=== PATIENT | female | born 1965 | race Caucasian/White ===

== ENCOUNTER 2023-06-22 12:33 | Outpatient (AMB) | payer MEDICARE, MEDICAID, SELFPAY ==
--- NOTE | 2023-06-22 12:54 | A.SPINEOV_ITS ---
Intake Intake Visit Reasons: spinal stenosis Intake Note: Ms. Gutierrez is here today c/o Left sided Neck pain with radiating symptoms down both arms. Certified Activities Director Required: No Allergies sulfite Allergy (Uncoded 06/22/23 12:56) sensitivity Assessment & Plan Assessment & Plan (1) Bilateral cervical radiculopathy: Code(s): M54.12 - Radiculopathy, cervical region Plan: Dear colleague Thank you for referring Diamond Gutierrez to the office today with a chief complaint of bilateral arm pain, right more than left. HPI: This 57-year-old female developed pain radiating from her neck down into her right arm approximately 1 year ago. It started with headaches and then progressed to pain in the right side of her neck to the elbow and into her hand. Initially the pain was tolerable but over time it became unbearable. Currently, the pain is constant and interferes with her daily activities. She can not sleep. She sleeps in a half sitting position with multiple pillows. Activity increases the pain. Supporting her right arm decreases the pain mildly. The same pain in the same distribution is occurring on the left side but much milder. Multiple friends that a physical therapist performed therapy on her without success. Recently, they declined performing physical therapy due to the amount of pain the patient is in. She is doing physician guided home exercise plan without success. She has taking a lot of anti-inflammatory drugs and Tylenol without success. PMH: Hypertension, hypercholesterolemia, ulcerative colitis. She had a recent checkup by her primary care physician without major findings. Medications: Paxil, hydrochlorothiazide, atorvastatin, omeprazole Allergies: Sulfa sensitivity Social history: . Two daughters. Nonsmoker Physical Exam: Pleasant female in obvious agony. She holds her right arm in a flexed position. Examined of the right shoulder is noneventful. Spurling test is positive with radiation down her right arm. There is a trace of triceps weakness on the right side. This diffuse numbness of her fingers on the right side. No pathological reflexes Radiological Studies: MRI done at [place] on 05/16/2023 shows an anterolisthesis grade 1 C6-7 and broad-based disc osteophyte complex with superimposed central protrusion causing severe central stenosis and moderate to severe bilateral foraminal stenosis . A dynamic cervical x-ray shows a stable anterolisthesis C5-6 and C6-7. Impression/Plan: This patient is suffering from a bilateral C7 radiculopathy due to a broad based disc osteophyte complex compressing the bilateral C7 nerve roots. She is very uncomfortable and therefore I added her for an anterior diskectomy and fusion C6-7 on 07/02/2023. Thank you for allowing me to participate in your patients care. total time spent was 50 minutes in counseling ,coordination of plan, personal review of imaging, surgical decision making and subsequent plan Juan Humphrey MD, PhD Spine Fellowship Trained Neurosurgeon Director, [facility] (2) Anterolisthesis of cervical spine: Code(s): M43.12 - Spondylolisthesis, cervical region Plan: e Orders: Orders XR cervical spine 4V Today M43.12 - Spondylolisthesis, cervical region, M54.12 - Radiculopathy, cervical region Coding Level of Care Code New Pt Level 4 (77049) Diagnoses Bilateral cervical radiculopathy M54.12 Anterolisthesis of cervical spine M43.12
== END 2023-06-22 14:18 | disposition home or self-care (01) ==
PROVIDERS: PCP Internal Medicine; Visit Provider Neurological Surgery
DX: M54.12 Radiculopathy, cervical region (principal); M43.12 Spondylolisthesis, cervical region
CPT/HCPCS: 99204

== ENCOUNTER 2023-06-22 12:33 | Outpatient (REF) | payer MEDICARE, MEDICAID, SELFPAY ==
--- NOTE | ~2023-06-22 | XR_ITS ---
EXAMINATION: XR CERVICAL SPINE CLINICAL INFORMATION: Spondylolisthesis COMPARISON: None available. TECHNIQUE: 4 views of the cervical spine were obtained. Flexion-extension views were obtained. FINDINGS: Vertebrae from C1 to C6 visualized. There is approximately 2 mm of anterolisthesis of C5 on C6 without evidence of dynamic instability. No acute fracture. Paravertebral soft tissue structures are within normal limits. XR/XR cervical spine 4V IMPRESSION: C5 on C6 anterolisthesis 2 mm without dynamic instability.
== END 2023-06-22 12:34 | disposition home or self-care (01) ==
LOC: HO.HOSX 12:33
PROVIDERS: PCP Internal Medicine; Visit Provider Neurological Surgery
DX: M43.12 Spondylolisthesis, cervical region (principal); M54.12 Radiculopathy, cervical region
CPT/HCPCS: 72050; 99202

== ENCOUNTER → 2023-06-29 13:13 | Outpatient (BNV) | payer MEDICARE, MEDICAID, SELFPAY | PROVIDERS: PCP Internal Medicine; Visit Provider Internal Medicine Cardiovascular Disease | DX: R94.31 Abnormal electrocardiogram [ECG] [EKG] (principal) | CPT/HCPCS: 93010 ==

== ENCOUNTER 2023-06-30 09:48 | Day surgery (SDC) | payer MEDICARE, MEDICAID, SELFPAY ==
--- NOTE | 2023-06-29 | ECG_ITS ---
Test Reason : preop Blood Pressure : / mmHG Vent. Rate : 070 BPM Atrial Rate : 070 BPM P-R Int : 162 ms QRS Dur : 084 ms QT Int : 420 ms P-R-T Axes : 028 -14 -15 degrees QTc Int : 453 ms Normal sinus rhythm Minimal voltage criteria for LVH, may be normal variant ( R in aVL ) Inferior infarct , age undetermined Abnormal ECG No previous ECGs available Referred By: Ami Sampson Electronically Signed By:Faustino Ureña
[2023-06-29 12:17] VITALS: BP 158/87; PULSE 65; RESP 16; O2SAT 99; BMI 36.6
--- NOTE | 2023-06-29 12:51 | P.CONAN_ITS ---
Documented by User: Ami Sampson NP 06/29/23 14:42 HPI - Anesthesia Eval Consult details Narrative: 57yo F for C 6-7 Ant Cerv Discectomy and fusion No recent illness. Mild seasonal allergies No CP/SOB with minimal activity r/t pain. Able to do ADL's GERD. ppi controls Asthma. Very stable. No rescue inhaler. Only flares with URI. Hx of uvulitis post general anesthesia 2015 [facility] Active Problems Active Problems: All Active Problems (Updated 06/29/23 @ 12:41 by Jordyn Tran RN) Bilateral cervical radiculopathy (Acute) Anterolisthesis of cervical spine (Acute) Past Medical History Medical History Asthma Depression Anxiety GERD (gastroesophageal reflux disease) Seasonal allergies Ulcerative colitis Elevated cholesterol HTN (hypertension) Cervical radiculopathy Family History Family history of problems with anesthesia: No Surgical History Surgical History History of dental surgery Hx of foot surgery History of surgery on left wrist Hx of left knee surgery Hx of right knee surgery Hx of colonoscopy History of bilateral carpal tunnel release History of bilateral knee replacement History of Problems with Anesthesia: No Social History Social History Household Members: Spouse Are you a primary personal care assistant to a significant other at home: No Do you presently have visiting nurse or other home services: No Patient Tobacco Use Status: Never used Tobacco Use of substances other than those prescribed or required for medical reasons: No Have you been hit, kicked, punched, or otherwise hurt by someone within the past year? If so, by whom?: No Are you DNR?: No Advance Directives: No Advance Directives Information Provided: Yes Advance Directives on File: No Recently lost weight without trying: No Nutrition Risks: No Nutritional Risk Meds Allergies Allergy/AdvReac Type Severity Reaction Status Date / Time sulfite Allergy Intermediate sensitivity-food Verified 06/29/23 11:58 sensitivity Home Medications Medication Instructions Recorded Confirmed Last Taken Type atorvastatin 40 mg tablet 40 mg PO DAILY 06/28/23 06/28/23 Unknown History hydrochlorothiazide 12.5 mg capsule 12.5 mg PO DAILY 06/28/23 06/28/23 Unknown History omeprazole 20 mg capsule,delayed 20 mg PO DAILY 06/28/23 06/28/23 Unknown History release paroxetine HCl 20 mg tablet 40 mg PO DAILY 06/28/23 06/28/23 Unknown History acetaminophen 500 mg tablet 1,000 mg PO QID PRN Pain 06/29/23 06/29/23 Unknown History aspirin 81 mg tablet,delayed 81 mg PO DAILY 06/29/23 06/29/23 Unknown History release cholecalciferol (vitamin D3) 25 25 mcg PO DAILY 06/29/23 06/29/23 Unknown Hist ory mcg (1,000 unit) tablet (Vitamin D3) levocetirizine 5 mg tablet (Xyzal) 5 mg PO DAILY PRN Allergy Symptoms 06/29/23 06/29/23 Unknown History melatonin 10 mg tablet 10 mg PO BEDTIME PRN Insomnia 06/29/23 06/29/23 Unknown History multivitamin 1 tab PO DAILY 06/29/23 06/29/23 Unknown History potassium chloride 06/29/23 06/29/23 Unknown History Exam Height,Weight and Vital Signs: Height 5 ft 4 in Weight 96.6 kg Last Vital Signs Pulse 65 06/29/23 12:17 Resp 16 06/29/23 12:17 BP 158/87 H 06/29/23 12:17 Pulse Ox 99 06/29/23 12:17 O2 Del Method Room Air 06/29/23 12:17 Pertinent Lab Results Pertinent Lab Results: Lab Results 06/29/23 Range/Units 13:23 WBC 8.4 (4.8-10.8) X10*3/uL RBC 4.57 (4.20-5.50) X10*6/uL Hgb 13.5 (12.0-16.0) g/dl Hct 38.9 (37.0-47.0) % MCV 85.1 (80.0-98.0) fL MCH 29.5 (27.0-33.0) pg MCHC 34.7 (31.0-35.0) g/dl RDW 12.0 (11.0-16.0) % Plt Count 296 (160-400) X10*3/uL MPV 10.5 (9.4-12.3) fL Absolute Nucleated RBC 0.000 (0.0-0.012) X10*3/uL Nucleated RBC % (auto) 0.0 (0.0-0.2) /100WBC Sodium 141 (135-145) mmol/L Potassium 3.5 (3.3-5.1) mmol/L Chloride 100 (96-108) mmol/L Carbon Dioxide 31 H (22-29) mmol/L Anion Gap 14 (12-20) BUN 9 (9-16) mg/dL Creatinine 0.85 (0.5-1.4) mg/dL Estim Creat Clear Calc 83.3 Estimated GFR > 60 Random Glucose 93 (60-115) mg/dL Calcium 10.0 (8.4-10.2) mg/dL Airway Mallampati Class: III TM Dist: >3cm Neck ROM: Limited Loose/Missing/Broken Teeth: Yes (#7&10 implants with crowns) Heart: RRR Lungs: CTAB Assessment and Plan Assessment Anesthesia Assessment: Anesthesia Plan Discussed and PAT Visit Final Anesthetic Review Family History of Problems with Anesthesia: No History of Problems with Anesthesia: No Documented by User: Rudi Ayala MD 06/30/23 10:45 [facility] Past Medical History Medical History Asthma Depression Anxiety GERD (gastroesophageal reflux disease) Seasonal allergies Ulcerative colitis Elevated cholesterol HTN (hypertension) Cervical radiculopathy Surgical History Surgical History History of dental surgery Hx of foot surgery History of surgery on left wrist Hx of left knee surgery Hx of right knee surgery Hx of colonoscopy History of bilateral carpal tunnel release History of bilateral knee replacement Social History Social History Household Members: Spouse Are you a primary personal care assistant to a significant other at home: No Do you presently have visiting nurse or other home services: No Patient Tobacco Use Status: Never used Tobacco Use of substances other than those prescribed or required for medical reasons: No Have you been hit, kicked, punched, or otherwise hurt by someone within the past year? If so, by whom?: No Are you DNR?: No Advance Directives: No Advance Directives Information Provided: Yes Advance Directives on File: No Recently lost weight without trying: No Nutrition Risks: No Nutritional Risk Meds Allergies Allergy/AdvReac Type Severity Reaction Status Date / Time sulfite Allergy Intermediate sensitivity-food Verified 06/29/23 11:58 sensitivity Home Medications Medication Instructions Recorded Confirmed Last Taken Type atorvastatin 40 mg tablet 40 mg PO DAILY 06/28/23 06/28/23 Unknown History hydrochlorothiazide 12.5 mg capsule 12.5 mg PO DAILY 06/28/23 06/28/23 Unknown History omeprazole 20 mg capsule,delayed 20 mg PO DAILY 06/28/23 06/28/23 Unknown History release paroxetine HCl 20 mg tablet 40 mg PO DAILY 06/28/23 06/28/23 Unknown History acetaminophen 500 mg tablet 1,000 mg PO QID PRN Pain 06/29/23 06/29/23 Unknown History aspirin 81 mg tablet,delayed 81 mg PO DAILY 06/29/23 06/29/23 Unknown History release cholecalciferol (vitamin D3) 25 25 mcg PO DAILY 06/29/23 06/29/23 Unknown History mcg (1,000 unit) tablet (Vitamin D3) levocetirizine 5 mg tablet (Xyzal) 5 mg PO DAILY PRN Allergy Symptoms 06/29/23 06/29/23 Unknown History melatonin 10 mg tablet 10 mg PO BEDTIME PRN Insomnia 06/29/23 06/29/23 Unknown History multivitamin 1 tab PO DAILY 06/29/23 06/29/23 Unknown History potassium chloride 06/29/23 06/29/23 Unknown History Assessment and Plan Final Anesthetic Review NPO: Yes ASA Class: III Final Preanesthetic Review: No Changes in Pt Med Stat, Meds/Allgs Chart Reviewed, Consent Obtained/Reviewed and Anes Risks/Benef Reviewed Patient Risk: Intermediate Procedure Risk: Intermediate Assessment/Block/Sedation in SS: Assess/Block/Sedation-SS Anesthetic Plan Anesthetic Plan: GA Disposition: Standard PACU
[2023-06-29 14:21] LABS: Hematocrit 38.9 % (37.0-47.0); Hemoglobin 13.5 g/dl (12.0-16.0); Mean Corpuscular HGB Conc 34.7 g/dl (31.0-35.0); Mean Corpuscular Hemoglobin 29.5 pg (27.0-33.0); Mean Corpuscular Volume 85.1 fL (80.0-98.0); Mean Platelet Volume 10.5 fL (9.4-12.3); Platelet Count 296 X10*3/uL (160-400); Red Blood Count 4.57 X10*6/uL (4.20-5.50); White Blood Count 8.4 X10*3/uL (4.8-10.8)
[2023-06-29 14:38] LABS: Anion Gap 14 (12-20); Blood Urea Nitrogen 9 mg/dL (9-16); Carbon Dioxide 31 mmol/L (22-29); Chloride 100 mmol/L (96-108); Creatinine Clr Calc Pharmacy 83.3; Estimated Glomerular Filt Rate > 60; Glucose Random 93 mg/dL (60-115); Potassium 3.5 mmol/L (3.3-5.1); Sodium 141 mmol/L (135-145)
[2023-06-30] VITALS (9 sets, daily range): BP systolic 132–183; BP diastolic 60–93; PULSE 72–88; RESP 12–18; TEMP 35.9–36.1; O2SAT 95–100; BMI 36.9
--- NOTE | ~2023-06-30 | FL_ITS ---
EXAMINATION: XR FLUOROSCOPY WITH IMAGES CLINICAL INFORMATION: C6-C7 anterior discectomy with fusion. COMPARISON: Cervical spine radiographs dated 06/22/2023. TECHNIQUE: Fluoroscopy Supervised By: Dr. Kevin Humphrey. Fluoroscopy Time: 0.1 minutes. Cumulative Dose: 2.84 mGy. DAP: 0.584 Gycm2. Images: 0.1. FINDINGS: The submitted images show application of an anterior Low Profile fixator device to the C6-C7 level. FL/FL guidance in OR IMPRESSION: Intraoperative fluoroscopic guidance is provided during C6-C7 anterior discectomy and fusion. Please see the patient's Operative Report for full procedural details.
--- NOTE | 2023-06-30 07:07 | P.HPSUR_ITS ---
Pre-Procedural Eval Section A - 24 Hr Update-Section A only Date of Service: 06/30/23 The patient is an INPATIENT: No Changes since office visit: No Cold of Flu in the past 2 weeks, No New Medical Problems, No Changes in Medication and No Patient answered all questions The patient has been examined within 24 hours of the surgical procedure. The History & Physical has been completed within 30 days and I have reviewed it.: No Section B - Complete if H&P > 30 days Chief Complaint: Radiculopathy, cervical region Allergies: Allergies Allergy/AdvReac Type Severity Reaction Status Date / Time sulfite Allergy Intermediate sensitivity-food Verified 06/29/23 11:58 sensitivity Review of Systems Sugical H&P ROS: Negative: Constitution, Cardiovascular, Respiratory, Neurological, Psychiatric, Hem-Onc, Allergic/Immunologic, Gastrointestinal, Genitourinary, Musculoskeletal, Integumentary, Endocrine and Eye s/Ears/Nose/Throat Exam Surgical H&P Exam: Not Evaluated: HEENT, Not Evaluated: Heart, Not Evaluated: Lungs, Not Evaluated: Extremities, Not Evaluated: Abdomen, Not Evaluated: Skin and Not Evaluated: Neurological Plan Diagnosis/Plan: Unchanged C6-7 ACDf Time Spent With Patient Time: Total time managing care of this patient today __6__ minutes.
--- NOTE | 2023-06-30 09:24 | PM.DS ---
DS: Providers Provider Date of Service: 06/30/23 Date of discharge: 06/30/23 Primary care physician: Armando Trimble MD Admitting clinician: Juan Humphrey DS: Diagnosis Discharge Diagnosis (1) Bilateral cervical radiculopathy: Status: Acute DS: Summary Time Attestation Discharge Coordination Time (in mins): 5 Quality: Safe Use of Opioids Does Pt have an Active Cancer Diagnosis on the Problem List?: No Quality: Stroke Does the patient have a stroke diagnosis?: No Physical Exam Vital Signs: Vital Signs: Last Vital Signs Pulse 65 06/29/23 12:17 Resp 16 06/29/23 12:17 BP 158/87 H 06/29/23 12:17 Pulse Ox 99 06/29/23 12:17 O2 Del Method Room Air 06/29/23 12:17 BMI result Body Mass Index 36.6 DS: Data Data Completed and Pending Labs on day of discharge: Laboratory Results - last 24 hr 06/29/23 13:23 WBC 8.4 RBC 4.57 Hgb 13.5 Hct 38.9 MCV 85.1 MCH 29.5 MCHC 34.7 RDW 12.0 Plt Count 296 MPV 10.5 Absolute Nucleated RBC 0.000 Nucleated RBC % (auto) 0.0 Sodium 141 Potassium 3.5 Chloride 100 Carbon Dioxide 31 H Anion Gap 14 BUN 9 Creatinine 0.85 Estim Creat Clear Calc 83.3 Estimated GFR > 60 Random Glucose 93 Calcium 10.0 Discharge Plan Discharge Patient Disposition: Home, Self-Care Referrals: Armando Trimble MD [Primary Care Provider] - 1 Week Discharge Medications: New oxycodone 5 mg tablet 5 mg PO Q6H PRN (Reason: severe pain (scale score 7-10)) Qty: 30 0RF Rx Instructions: Partial Fill upon patient request. Continued atorvastatin 40 mg tablet 40 mg PO DAILY paroxetine HCl 20 mg tablet 40 mg PO DAILY hydrochlorothiazide 12.5 mg capsule 12.5 mg PO DAILY omeprazole 20 mg capsule,delayed release(DR/EC) 20 mg PO DAILY aspirin 81 mg Tablet,Delayed Release (Dr/Ec) 81 mg PO DAILY multivitamin Tablet 1 tab PO DAILY cholecalciferol (vitamin D3) [Vitamin D3] 25 mcg (1,000 unit) Tablet 25 mcg PO DAILY melatonin 10 mg Tablet 10 mg PO BEDTIME PRN (Reason: Insomnia) potassium chloride 10 meq PO DAILY levocetirizine [Xyzal] 5 mg Tablet 5 mg PO DAILY PRN (Reason: Allergy Symptoms) acetaminophen 500 mg Tablet 1,000 mg PO QID PRN (Reason: Pain) Discharge Orders: Discharge Order (Routine); Ordered 06/30/23 Ordered By: Jesús Vilchis Diet: Advance to usual diet Activity on Discharge: As tolerated Activity Restrictions/Additional Instructions: After your spinal surgery we ask you to observe the following restrictions/guidelines: Activity: It is normal to feel some discomfort as you increase your activity, but that will improve with time. We ask you avoid heavy lifting or acitivities that cause pain. As a general rule, 8lbs is a safe limit for lifting right after surgery. Walk as much as you feel comfortable but not to exhaustion. You will feel extra tired the first few days after surgery. Stay well hydrated. It is OK to walk up and down stairs You may return to driving when you are off narcotics (such as vicodin, oxycodone, dilaudid, etc), and you are back to normal functional capacity. If you have any concerns please check with office before driving. Return to work is specific to each patient and each surgery, so please speak with your doctor/PA at first follow up. Please bring paperwork such as FMLA at that time if you need it filled out. Medications: For optimum pain control, it is best to start with a combination of 500 mg of Tylenol every 4 hours with 600 mg of Motrin every 8 hours, and use narcotics as needed in between for breakthrough pain. We will give you a short supply of narcotics after surgery (usually one weeks worth). If you need more please call the office but do not use more than prescribed. You will need to give our office 48 hours notice if you need narcotics refilled and we do not fill narcotics on weekends or evenings. If you are on a narcotic, it is a good idea to take a stool softener such as colace or senna to avoid constipation If you take blood thinner such as aspirin, Plavix, Coumadin, Effient, Eliquis etc for conditions such as Afib, DVT, Pulmonary embolus, coronary disease, stents etc please speak with your surgeon about specific details as to when you can resume these medications. You can resume NSAIDs on post op day 1 (eg: Motrin, Naproxen, etc). Follow up: Please call the office, , after surgery to arrange a 3 week follow up for wound check. Wound Care: You may remove your dressing on the first day after surgery. ?You may ?leave open to air. Please do not remove the steri strips underneath. they will fall off on their own in one week. IT IS NORMAL FOR THE WOUND TO OOZE OR BE BLOODY FOR A FEW DAYS AFTER SURGERY. ?IF THIS HAPPENS JUST PLACE NEW DRESSING OVER IT TO AVOID STAINING CLOTHES. You may shower on post op day # 1 We ask that you do not let the water soak the wound. If it does get wet, just towel dry lightly. Please do not scrub your incision or place any type of chemical/ointment on the wound. No tub baths, pools or jacuzzis for one month. If you have any leaking or redness from your wound, or fevers, please call office Print Language: [place] Discharge Date/Time: 06/30/23 16:01
[2023-06-30] MEDS: Lactated Ringers 1,000 ML 100 ML IVCONT (10:47)
[2023-06-30] MEDS: Gabapentin 300 MG CAPSULE PO (10:48)
[2023-06-30] MEDS: methocarbamoL 750 MG TABLET PO (10:48)
--- NOTE | 2023-06-30 13:02 | W.PM.OPN ---
Operative Note Operative Note Date of Service: 06/30/23 Narrative: Preoperative Diagnosis: Cervical radiculopathy Procedure: C6-C7 Anterior discectomy, arthrodesis and implantation cage ; C6-C7 anterior instrumentation ; local autograft; microscope Informed Consent was obtained for this operation. I have explained the nature, purpose and benefits of the operation. I have discussed the risks and benefit of the operation including possible complications or adverse events with patient/family. Alternative(s) were discussed with the patient with their relative benefits and risks as well as the consequences of not accepting the operation were included in obtaining consent. Surgeon: MEGAN BOUDREAUX MD, PHD Procedure Assisted By: Jesús Vilchis Description of Procedure: This lady suffering from severe cervical radiculopathy, left more than right. MRI shows bilateral C7 foraminal stenosis. She was offered an anterior diskectomy and fusion. The procedure complications were explained. The patient was consented. The patient was brought to the operating room and endotracheally intubated. The patient was put in supine position with slight extension of the neck. Prep and drape was done followed by timeout. A mid cervical incision was made followed by opening of the platysma. The prevertebral fascia was reached following the natural planes while the physician assistant associate full professor provided manual retraction. The prevertebral fascia was opened to expose the disc space. A spinal needle was placed in the disk space to confirm the correct level with xray. The longus colli muscles were released bilaterally and a self retaining retractor was inserted. Two Havre pins were placed in the C6-C7 vertebral bodies and distraction was give over the interspace. The discectomy was completed toward the posterior annulus of the disc. The microscope was brought in. The remainder of the discectomy was completed. The posterior ligament was opened and resected to expose the underlying dura. Osteophytes were resected from the body of C6-C7 and saved for autograft. Bilateral foraminotomies were done. The endplates were prepared after which a 6 mm cage filled with autograft was inserted into the disc space. A separate attached plate was locked down with 2 x 12 mm screws as anterior instrumentation. Final x-rays in AP and lateral projection showed a satisfactory position of the implant. The physician assistant associate full professor took over. The Havre pin was removed. Hemostasis was done. He closed the incision in 2 layers with a 3-0 Vicryl. Steri-Strips used to approximate incision. An OpSite with Tegaderm was used to cover the incision. All sponge and needle counts were correct. Patient was extubated and transported in stable is to recovery room. Anesthesia: General Estimated Blood Loss (ml): 10 mL Duration of Surgery: 50 minutes Postoperative Plan: Discharge home Complications: None
--- NOTE | 2023-06-30 13:18 | PM.DS ---
DS: Providers Provider Date of Service: 06/30/23 Primary care physician: Armando Trimble MD DS: Diagnosis Discharge Diagnosis (1) Bilateral cervical radiculopathy: Status: Acute DS: Summary Time Attestation Discharge Coordination Time (in mins): 15 Quality: Safe Use of Opioids Does Pt have an Active Cancer Diagnosis on the Problem List?: No Quality: Stroke Does the patient have a stroke diagnosis?: No Physical Exam Vital Signs: Vital Signs: Last Vital Signs Temp 96.7 F L 06/30/23 10:50 Pulse 88 06/30/23 10:50 Resp 16 06/30/23 10:50 BP 132/93 H 06/30/23 10:50 Pulse Ox 98 06/30/23 10:50 O2 Del Method Room Air 06/30/23 10:50 BMI result Body Mass Index 36.9 DS: Data Data Completed and Pending Labs on day of discharge: Laboratory Results - last 24 hr 06/29/23 13:23 WBC 8.4 RBC 4.57 Hgb 13.5 Hct 38.9 MCV 85.1 MCH 29.5 MCHC 34.7 RDW 12.0 Plt Count 296 MPV 10.5 Absolute Nucleated RBC 0.000 Nucleated RBC % (auto) 0.0 Sodium 141 Potassium 3.5 Chloride 100 Carbon Dioxide 31 H Anion Gap 14 BUN 9 Creatinine 0.85 Estim Creat Clear Calc 83.3 Estimated GFR > 60 Random Glucose 93 Calcium 10.0 Discharge Plan Discharge Patient Disposition: Home, Self-Care Referrals: Armando Trimble MD [Primary Care Provider] - 1 Week Discharge Medications: New oxycodone 5 mg tablet 5 mg PO Q6H PRN (Reason: severe pain (scale score 7-10)) Qty: 30 0RF Rx Instructions: Partial Fill upon patient request. Continued atorvastatin 40 mg tablet 40 mg PO DAILY paroxetine HCl 20 mg tablet 40 mg PO DAILY hydrochlorothiazide 12.5 mg capsule 12.5 mg PO DAILY omeprazole 20 mg capsule,delayed release(DR/EC) 20 mg PO DAILY aspirin 81 mg Tablet,Delayed Release (Dr/Ec) 81 mg PO DAILY multivitamin Tablet 1 tab PO DAILY cholecalciferol (vitamin D3) [Vitamin D3] 25 mcg (1,000 unit) Tablet 25 mcg PO DAILY melatonin 10 mg Tablet 10 mg PO BEDTIME PRN (Reason: Insomnia) potassium chloride 10 meq PO DAILY levocetirizine [Xyzal] 5 mg Tablet 5 mg PO DAILY PRN (Reason: Allergy Symptoms) acetaminophen 500 mg Tablet 1,000 mg PO QID PRN (Reason: Pain) Discharge Orders: Discharge Order (Routine); Ordered 06/30/23 Ordered By: Jesús Vilchis Diet: Advance to usual diet Activity on Discharge: As tolerated Activity Restrictions/Additional Instructions: After your spinal surgery we ask you to observe the following restrictions/guidelines: Activity: It is normal to feel some discomfort as you increase your activity, but that will improve with time. We ask you avoid heavy lifting or acitivities that cause pain. As a general rule, 8lbs is a safe limit for lifting right after surgery. Walk as much as you feel comfortable but not to exhaustion. You will feel extra tired the first few days after surgery. Stay well hydrated. It is OK to walk up and down stairs You may return to driving when you are off narcotics (such as vicodin, oxycodone, dilaudid, etc), and you are back to normal functional capacity. If you have any concerns please check with office before driving. Return to work is specific to each patient and each surgery, so please speak with your doctor/PA at first follow up. Please bring paperwork such as FMLA at that time if you need it filled out. Medications: For optimum pain control, it is best to start with a combination of 500 mg of Tylenol every 4 hours with 600 mg of Motrin every 8 hours, and use narcotics as needed in between for breakthrough pain. We will give you a short supply of narcotics after surgery (usually one weeks worth). If you need more please call the office but do not use more than prescribed. You will need to give our office 48 hours notice if you need narcotics refilled and we do not fill narcotics on weekends or evenings. If you are on a narcotic, it is a good idea to take a stool softener such as colace or senna to avoid constipation If you take blood thinner such as aspirin, Plavix, Coumadin, Effient, Eliquis etc for conditions such as Afib, DVT, Pulmonary embolus, coronary disease, stents etc please speak with your surgeon about specific details as to when you can resume these medications. You can resume NSAIDs on post op day 1 (eg: Motrin, Naproxen, etc). Follow up: Please call the office, , after surgery to arrange a 3 week follow up for wound check. Wound Care: You may remove your dressing on the first day after surgery. ?You may ?leave open to air. Please do not remove the steri strips underneath. they will fall off on their own in one week. IT IS NORMAL FOR THE WOUND TO OOZE OR BE BLOODY FOR A FEW DAYS AFTER SURGERY. ?IF THIS HAPPENS JUST PLACE NEW DRESSING OVER IT TO AVOID STAINING CLOTHES. You may shower on post op day # 1 We ask that you do not let the water soak the wound. If it does get wet, just towel dry lightly. Please do not scrub your incision or place any type of chemical/ointment on the wound. No tub baths, pools or jacuzzis for one month. If you have any leaking or redness from your wound, or fevers, please call office
[2023-06-30] MEDS: HYDROmorphone HCl 0.5 MG/0.5 ML SYRINGE IVPUSH (13:30)
[2023-06-30] MEDS: oxyCODONE HCl Immed Release 5 MG TABLET PO (14:35)
== END 2023-06-30 16:01 | disposition home or self-care (01) ==
LOC: HO.SSS 09:49
PROVIDERS: Nurse Practitioner; PCP Internal Medicine; Visit Provider Neurological Surgery
PROC: (CPT 22551; principal; 2023-06-30 12:30)
DX: M54.12 Radiculopathy, cervical region (principal); M43.12 Spondylolisthesis, cervical region; R20.0 Anesthesia of skin; I10 Essential (primary) hypertension; E78.00 Pure hypercholesterolemia, unspecified; K51.90 Ulcerative colitis, unspecified, without complications; J45.909 Unspecified asthma, uncomplicated; F32.A Depression, unspecified; F41.9 Anxiety disorder, unspecified; Z79.82 Long term (current) use of aspirin; Z79.899 Other long term (current) drug therapy; Z88.2 Allergy status to sulfonamides; Z98.890 Other specified postprocedural states
CPT/HCPCS: 22551; 22853; 20936; 22845; 36415; 80048; 85027; 93005; C1713; J0131; J0690; J1100; J1170; J2250; J2405; J2704; J3010

== ENCOUNTER → 2023-06-30 09:48 | Outpatient (BNV) | payer MEDICARE, MEDICAID, SELFPAY | PROVIDERS: PCP Internal Medicine; Visit Provider Neurological Surgery | DX: M54.12 Radiculopathy, cervical region (principal) | CPT/HCPCS: 20936; 22551; 22845; 22853; 99499 ==

== ENCOUNTER 2023-07-20 10:44 | Outpatient (AMB) | payer MEDICARE, MEDICAID, SELFPAY ==
--- NOTE | 2023-07-20 10:48 | A.SPINEOV_ITS ---
Intake Intake Visit Reasons: 1st post op Intake Note: Ms. Gutierrez is here today for 1st post-op appointment. Template Layout Worker Required: No Allergies sulfite Allergy (Intermediate, Verified 07/20/23 10:48) sensitivity-food sensitivity Assessment & Plan Assessment & Plan (1) S/P cervical spinal fusion: Code(s): Z98.1 - Arthrodesis status Plan Procedure: C6-7 ACDF Diamond comes in today for her 1st postoperative visit. She reports she is very satisfied with the surgery and feels much better than she did pre-operatively. The patient reports she is up walking around and completing the majority of her ADLs. The majority of her numbness/tingling in her bilateral upper extremities has resolved. She still reports mild pain in her posterior neck, which we discussed as a common complication of the surgery. We expect this to resolve as her healing progresses. No new neurological deficits. Patient is able to ambulate well, rises from a seated position without difficulty. Incision sites are closed, well healing, with no signs of drainage. We will follow-up with the patient in 6 weeks for her 2nd postoperative visit. At that time we will get x-rays to review with the patient. Jesús Humphrey MD,PhD [facility] Orders: Orders XR cervical spine 4V Today Z98.1 - Arthrodesis status Coding Level of Care Code Global (02592) Diagnoses S/P cervical spinal fusion Z98.1
== END 2023-07-20 11:07 | disposition home or self-care (01) ==
PROVIDERS: PCP Internal Medicine; Visit Provider Physician Assistant
DX: Z98.1 Arthrodesis status (principal)
CPT/HCPCS: 99024

== ENCOUNTER 2023-07-20 10:44 | Outpatient (REF) | payer MEDICARE, MEDICAID, SELFPAY | END 2023-07-20 10:45 | disposition home or self-care (01) | LOC: HO.HOSX 10:44 | PROVIDERS: PCP Internal Medicine; Visit Provider Physician Assistant | DX: Z98.1 Arthrodesis status (principal) | CPT/HCPCS: 99212 ==

== ENCOUNTER 2023-08-31 08:35 | Outpatient (AMB) | payer MEDICARE, MEDICAID, SELFPAY ==
--- NOTE | 2023-08-31 09:00 | A.SPINEOV_ITS ---
Intake Visit Reasons: 2nd post op with xray Intake Note: Ms. Hector is here for her 2nd post-op appointment with x-rays. Ux Developer Designer Required: No Allergies sulfite Allergy (Intermediate, Verified 07/20/23 10:48) sensitivity-food sensitivity Assessment & Plan Assessment & Plan (1) S/P spinal surgery: Code(s): Z98.890 - Other specified postprocedural states Category: Medical Plan Procedure: C6-7 ACDF Diamond comes in today for her 2nd postoperative visit. She states that she has had good improvement of symptoms since her surgery and is very satisfied overall. Unfortunately she continues to have some posterior neck pain, similar to what she had during her last visit in addition to this, she states that she has some pain in her bilateral medial shoulders. She does have a history of lateral and medial epicondylitis per her report, and is unsure if this is related because her cervical neck issues began around the same time. Aside from those issues which we discussed she is overall doing well, and remains very optimistic about her postoperative healing course. We reviewed her x-ray imaging in office today which shows stable placement of her surgical instrumentation with no changes from fluoroscopy. No new neurological deficits. The patient is able to ambulate well and rises from seated position without difficulty. She can articulate her hands without any significant deficits are difficulties. Her anterior incision site is fully closed and healed. I would like to follow up again at least sent to months to ensure that she continues to make steady healing progress. She is agreeable to this and will follow up with us then. Jesús Humphrey MD,PhD [facility] Coding Level of Care Code Global (88842) Diagnoses S/P spinal surgery Z98.890
== END 2023-08-31 09:24 | disposition home or self-care (01) ==
PROVIDERS: PCP Internal Medicine; Visit Provider Physician Assistant
DX: Z98.890 Other specified postprocedural states (principal)
CPT/HCPCS: 99024

== ENCOUNTER → 2023-08-31 08:35 | Outpatient (BNVA) | payer MEDICARE, MEDICAID, SELFPAY | PROVIDERS: PCP Internal Medicine; Visit Provider Physician Assistant ==

== ENCOUNTER 2023-08-31 08:39 | Outpatient (REF) | payer MEDICARE, MEDICAID, SELFPAY ==
--- NOTE | ~2023-08-31 | XR_ITS ---
EXAMINATION: XR CERVICAL SPINE CLINICAL INFORMATION: Arthrodesis status. COMPARISON: 06/30/2023, 08/31/2023. TECHNIQUE: 4 views of the cervical spine includes lateral flexion, extension, neutral, lateral, and AP views. FINDINGS: Straightening of the normal cervical lordosis. Anterior fixator device at C6-C7 status post discectomy and fusion. Mild anterolisthesis of C5 on C6 with flexion and extension. Mild anterolisthesis of C4 on C5 with flexion. Limited visualization of C6-C7 due to overlying soft tissues. XR/XR cervical spine 4V IMPRESSION: 1. Anterior fixator device at C6-C7 status post discectomy and fusion. 2. Mild anterolisthesis of C5 on C6 with flexion and extension. 3. Mild anterolisthesis of C4 on C5 with flexion.
== END 2023-08-31 08:40 | disposition home or self-care (01) ==
LOC: HO.HOSX 08:39
PROVIDERS: Visit Provider Physician Assistant
DX: Z48.89 Encounter for other specified surgical aftercare (principal)
CPT/HCPCS: 72050; 99212

== ENCOUNTER 2023-11-09 13:15 | Outpatient (AMB) | payer MEDICARE, MEDICAID, SELFPAY ==
--- NOTE | 2023-11-09 13:19 | A.SPINEOV_ITS ---
Intake Visit Reasons: 3rd post op Intake Note: Ms. Gutierrez is here today for her 3rd post-op visit. Carpenter'S Assistant Required: No Allergies sulfite Allergy (Intermediate, Verified 11/09/23 13:22) sensitivity-food sensitivity Assessment & Plan Assessment & Plan (1) S/P spinal surgery: Code(s): Z98.890 - Other specified postprocedural states Category: Surgical (2) Elbow pain: Code(s): M25.529 - Pain in unspecified elbow Category: Medical Plan Diamond comes in today for a subsequent follow-up visit. She reports that her neck pain has largely resolved. Unfortunately she continues to have some pain in her bilateral elbows. She does not report any numbness/tingling in her bilateral hands, and does have a history of prior bilateral carpal tunnel syndrome which was resolved with surgery. On examination today she has (+) Tinel's at the elbow bilaterally. Her history and examination are highly suspicious for bilateral cubital tunnel syndrome. I would like to send the patient for an EMG of her bilateral upper extremities to evaluate for this. I will follow up with her after the EMG is complete. Jesús Humphrey MD,PhD [facility] Orders: Orders NE electromyogram (EMG) Today M25.529 - Pain in unspecified elbow Coding Level of Care Code Global (49112) Diagnoses S/P spinal surgery Z98.890 Elbow pain M25.529
== END 2023-11-09 14:19 | disposition home or self-care (01) ==
PROVIDERS: PCP Internal Medicine; Visit Provider Physician Assistant
DX: M25.529 Pain in unspecified elbow (principal); Z98.890 Other specified postprocedural states
CPT/HCPCS: 99213

== ENCOUNTER → 2023-11-09 13:15 | Outpatient (BNVA) | payer MEDICARE, MEDICAID, SELFPAY | PROVIDERS: PCP Internal Medicine; Visit Provider Physician Assistant | DX: M25.521 Pain in right elbow (principal); M25.522 Pain in left elbow; Z98.890 Other specified postprocedural states | CPT/HCPCS: 99212 ==

== ENCOUNTER 2023-12-02 08:27 | Outpatient (REF) | payer MEDICARE, MEDICAID, SELFPAY ==
--- NOTE | 2023-12-02 08:32 | EMG_ITS ---
Chief complaint: Bilateral elbow pain, paresthesias and 5th digits. s/p C6-7 ACDF. History of bilateral Carpal Tunnel Syndrome surgery 2004, left wrist surgery for fracture, right rotator cuff surgery. Reason for referral: Evaluate for ulnar neuropathy Referred by: Jesús YEAGER Procedure done: Bilateral upper extremities NCS/EMG Precautions and/or limitations: Previous cervical fusion The limb temperature was monitored continuously and remained between 32-36 degrees C during the performance of the NCS. Nerve Conduction Studies Anti Sensory Summary Table ?Stim Site NR Onset (ms) Norm Onset (ms) Peak (ms) Norm Peak (ms) O-P Amp (?V) Norm O-P Amp Site1 Site2 Delta-0 (ms) Dist (cm) Darci (m/s) Norm Darci (m/s) Left Median Anti Sensory (2nd Digit) Wrist ? 2.6 3.5 <3.6 42.2 >10 Wrist 2nd Digit 2.6 14.0 54 Right Median Anti Sensory (2nd Digit) Wrist ? 2.5 3.3 <3.6 27.8 >10 Wrist 2nd Digit 2.5 14.0 56 Right Radial Anti Sensory (Thumb) Forearm ? 1.4 2.1 <3.1 15.2 Forearm Thumb 1.4 0.0 Left Ulnar Anti Sensory (5th Digit) Wrist ? 2.2 3.0 <3.7 28.8 >15.0 Wrist 5th Digit 2.2 14.0 64 Right Ulnar Anti Sensory (5th Digit) Wrist ? 2.5 3.3 <3.7 17.3 >15.0 Wrist 5th Digit 2.5 15.5 62 Motor Summary Table ?Stim Site NR Onset (ms) Norm Onset (ms) O-P Amp (mV) Norm O-P Amp iAmp (mV) Amp (1st) (%) Site1 Site2 Delta-0 (ms) Dist (cm) Darci (m/s) Norm Darci (m/s) Left Median Motor (Abd Poll Brev) Wrist ? 3.4 <3.9 7.6 >4.5 8.8 100.0 Elbow Wrist 3.9 21.5 55 >45 Elbow ? 7.3 7.3 8.4 96.1 Right Median Motor (Abd Poll Brev) Wrist ? 3.8 <3.9 6.5 >4.5 7.5 100.0 Elbow Wrist 3.6 20.0 56 >45 Elbow ? 7.4 5.9 6.9 90.8 Left Ulnar Motor (Abd Dig Minimi) Wrist ? 3.0 <3.0 6.0 >5 7.8 100.0 B Elbow Wrist 3.3 18.5 56 >45 B Elbow ? 6.3 5.7 7.4 95.0 A Elbow B Elbow 1.6 10.0 62 >45 A Elbow ? 7.9 5.5 7.3 91.7 Right Ulnar Motor (Abd Dig Minimi) Wrist ? 2.8 <3.0 7.2 >5 9.0 100.0 B Elbow Wrist 3.5 20.5 59 >45 B Elbow ? 6.3 6.7 8.5 93.1 A Elbow B Elbow 1.8 10.0 56 >45 A Elbow ? 8.1 6.6 8.5 91.7 EMG ?Side Muscle Nerve Root Ins Act Fibs Psw Amp Dur Poly Recrt Int Pat Comment Right 1stDorInt Ulnar C8-T1 Nml Nml Nml Nml Nml 0 Nml Complete Right FlexCarRad Median C6-7 Nml Nml Nml Nml Nml 0 Nml Complete Right Biceps Musculocut C5-6 Nml Nml Nml Nml Nml 0 Nml Complete Right Triceps Radial C6-7-8 Nml Nml Nml Incr Incr 0 Nml Complete Right Deltoid Axillary C5-6 Nml Nml Nml Nml Nml 0 Nml Complete Right FlexCarpiUln Ulnar C8,T1 Nml Nml Nml Nml Nml 0 Nml Complete Left 1stDorInt Ulnar C8-T1 Nml Nml Nml Nml Nml 0 Nml Complete Left FlexCarRad Median C6-7 Nml Nml Nml Nml Nml 0 Nml Complete Left Biceps Musculocut C5-6 Nml Nml Nml Nml Nml 0 Nml Complete Left Triceps Radial C6-7-8 Nml Nml Nml Nml Nml 0 Nml Complete Left Deltoid Axillary C5-6 Nml Nml Nml Nml Nml 0 Nml Complete Left FlexCarpiUln Ulnar C8,T1 Nml Nml Nml Nml Nml 0 Nml Complete FINDINGS: All motor and sensory nerves tested showed normal latencies, amplitudes and conduction velocities. Concentric needle EMG was performed in selected muscles of the bilateral upper extremities. Study revealed signs of electric abnormalities as shown in the table above. Right triceps showed increased insertional activity and duration. IMPRESSION: 1. This is a minimally abnormal study. 2. There is no electrodiagnostic evidence for median neuropathy, ulnar neuropathy, or brachial plexopathy. 3. Chronic reinnervation changes seen on right triceps most likely remnant of chronic C7 radiculopathy and surgery. Thank you for your kind referral. Carine Bermudez MD, SMITH Board Certified, [place] [employer] and Rehabilitation (ABPMR) Board Certified, [place] Board of Electrodiagnostic Medicine (ABEM) CODIN 37347 x 2 MTDD
== END 2023-12-02 08:28 | disposition home or self-care (01) ==
LOC: HO.NEURO 08:27
PROVIDERS: PCP Internal Medicine; Visit Provider Physician Assistant
DX: M25.521 Pain in right elbow (principal); M25.522 Pain in left elbow; R20.2 Paresthesia of skin
CPT/HCPCS: 95886; 95911

== ENCOUNTER → 2023-12-02 08:32 | Outpatient (BNV) | payer MEDICARE, MEDICAID, SELFPAY | PROVIDERS: PCP Internal Medicine; Visit Provider Physical Medicine & Rehabilitation | DX: M25.532 Pain in left wrist (principal); M25.531 Pain in right wrist; R20.2 Paresthesia of skin | CPT/HCPCS: 95886; 95911 ==

== ENCOUNTER 2025-03-05 09:21 | Outpatient (AMB) | payer MEDICARE, MEDICAID, SELFPAY ==
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
[2025-03-05 09:33] VITALS: BMI 32.6
--- OUTSIDE RECORDS SUMMARY | 2025-03-05 10:04 | XMS_ITS | Encounter Summary ---
Author Organization [facility] Address [address] [place] [address] Care Team Providers Care Liner Assembler Name Role Phone Drew Goff MD Primary Care Provider Terrence Ontiveros MD Primary Care Provider [phone] Encounter Details Date Type Department Care Team ([facility] st Contact Info) Description 04/09/2008 Orders Only [facility] [address] [place] [phone] Drew Goff MD [address] [place] [address] Social History Tobacco Use Types Packs/Day Years Used Date Smoking Tobacco: Never Alcohol Use Standard Drinks/Week Comments No 0 (1 standard drink = 0.6 oz pur e alcohol) Comments No Sex and Gender Information Value Date Recorded Sex Assigned at Not on file Legal Sex Female 9:39 PM EDT Gender Identity Not on file Sexual Orientation Not on file 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 Procedure Name Priority Date/Time Associated Diagnosis Comments CARDIAC RISK/LIPID PROFILE I Routine 04/09/2008 Screening for Lipoid Disorders BASIC METABOLIC PANEL Routine 04/09/2008 Hypertension Screen CBC 5 PART DIFF Routine 04/09/2008 Screening for Deficiency Anemia ALANINE AMINOTRANSFERASE (ALT), SERUM Routine 04/09/2008 Screening for Lipoid Disorders URINALYSIS, COMPLETE (DIP & MICRO) Routine 04/09/2008 Screening for Malignant Neoplasm of the Bladder documented in this encounter Results * Due to [place] state law, this organization might not be sharing negative HIV tests. * (ABNORMAL) URINALYSIS, COMPLETE (DIP & MICRO) (04/09/2008) COLOR (URINE) YELLOW YELLOW APPEARANCE (URINE) CLEAR CLEAR SPECIFIC GRAVITY 1.025 1.001 - 1.035 PH (URINE) 5.5 5.0 - 8.0 PROTEIN (URINE) NEG NEG GLUCOSE (URINE) NEG NEG Ketones (Urine) NEG NEG BILIRUBIN (URINE) NEG NEG BLOOD (URINE) NEG NEG WBC (URINE) NEG NEG NITRITE (URINE) NEG NEG WBC (URINE) 0-5 0-4/HPF RBC (Urine Sed) 0 0-3/HPF EPITHELIAL CELLS.SQUAMOUS (URINE SED) 0-5 0-5/HPF EPITHELIAL CELLS.TRANSITIO NAL (URINE SED) 0 0-5/HPF EPITHELIAL CELLS.RENAL (URINE SED) 0 0-3/HPF BACTERIA (URINE) FEW(A) NONE SEEN 04/09/2008 04/09/2008 6:3 3 PM EST Narrative 04/10/2008 2:36 AM EST Report Comments: CPE 04/11/08 Drew Xie MD LAB SAME DAY RESULT Final Re sult * CBC 5 PART DIFF (04/09/2008) WHITE BLOOD COUNT 6.5 3.8 - 10.8 THOUS/UL RBC 4.26 3.80 - 5.10 MIL/UL Hemoglobin 12.8 11.7 - 15.5 G/DL HCT (HEMATOCRIT) 38.0 35.0 - 45.0 % MCV 89.0 80.0 - 100.0 FL MCH 30.0 27.0 - 33.0 PG MCHC 33.7 32.0 - 36.0 G/DL BAND % 0 0 - 5 % NEUTROPHIL % 49 48 - 75 % LYMPHOCYTE % 40 17 - 40 % MONOCYTE % 7 0 - 14 % EOSINOPHIL % 3 0 - 5 % BASOPHIL % 1 0 - 3 % ATYPICAL LYMPHOCYTE % 0 0 - 5 % PLATELETS 267 140 - 400 THOUS/UL BANDS # 0 0 - 750 CELLS/MCL NEUTROPHILS # 3185 1500 - 7800 CELLS/MCL LYMPHOCYTES # 2600 850 - 3900 CELLS/MCL MONOCYTES # 455 200 - 950 CELLS/MCL EOSINOPHILS # 195 15 - 550 CELLS/MCL BASOPHILS # 65 0 - 200 CELLS/MCL ATYPICAL LYMPHOCYTES # 0 0 - 200 CELLS/MCL RDW 13.5 11.0 - 15.0 % MPV 8.5 7.5 - 11.5 FL 04/09/2008 04/09/2008 6:3 3 PM EST Narrative 04/10/2008 2:36 AM EST Report Comments: CPE 04/11/08 us Drew Xie MD LAB SAME DAY RESULT Final Re sult * (ABNORMAL) CARDIAC RISK/LIPID PROFILE I (04/09/2008) CHOLESTEROL, TOTAL 165 125 - 200 MG/DL TRIGLYCERIDES 108 30 - 149 MG/DL HDL-CHOLESTEROL 37(L) 40 - 77 MG/DL LDL-CHOLESTEROL 106 62 - 130 MG/DL Comment: RISK CATEGORY: LDL-CHOLESTEROL GOAL CHD AND CHD RISK EQUIVALENTS: <100 MULTIPLE (2+) FACTORS: <130 ZERO TO ONE RISK FACTOR: <160 CHD RELATIVE RISK RATIO (TOTAL/HDL) 4.46 0.0 - 5.0 Comment:(1.1 X AVERAGE) 04/09/2008 04/09/2008 6:3 3 PM EST Narrative 04/10/2008 2:36 AM EST Report Comments: CPE 04/11/08 us Drew Xie MD LABORATORY Final Result * ALANINE AMINOTRANSFERASE (ALT), SERUM (04/09/2008) ALT (SGPT) 11 6 - 40 U/L 04/09/2008 04/09/2008 6:3 3 PM EST Narrative 04/10/2008 2:36 AM EST Report Comments: CPE 04/11/08 us Drew Xie MD LAB SAME DAY RESULT Final Re sult * (ABNORMAL) BASIC METABOLIC PANEL (04/09/2008) CALCIUM 9.3 8.6 - 10.2 MG/DL BUN 12 7 - 25 MG/DL CREATININE 0.65 0.50 - 1.20 MG/DL Glucose 104(H) 65 - 99 MG/DL SODIUM 138 135 - 146 MMOL/L POTASSIUM 4.3 3.5 - 5.3 MMOL/L CHLORIDE 102 98 - 110 MMOL/L CARBON DIOXIDE 26 21 - 33 MMOL/L 04/09/2008 04/09/2008 6:3 3 PM EST Narrative 04/10/2008 2:36 AM EST Report Comments: CPE 04/11/08 us Drew Xie MD LAB SAME DAY RESULT Final Re sult documented in this encounter Visit Diagnoses Diagnosis Hypertension screen Screening for hypertension Screening for lipoid disorders Screening for deficiency anemia Screening for other and unspecified deficiency anemia Special screening for malignant neoplasms, colon Screening for malignant neoplasm of the bladder documented in this encounter Care Teams Liner Assembler Relationship Specialty Start Date End Date Drew Goff MD [address] [place] [id number] PCP - General 06/26/05 02/14/11 Terrence Ontiveros MD [address] [address] PCP - General Internal Medicine 02/15/11 documented as of this encounter
--- OUTSIDE RECORDS SUMMARY | 2025-03-05 10:04 | XMS_ITS | Encounter Summary ---
Author Organization [facility] Address [address] [place] [address] Care Team Providers Care Director Payment Name Role Phone Drew Goff MD Primary Care Provider [phone] Terrence Ontiveros MD Primary Care Provider [phone] Encounter Details Date Type Department Care Team (Late st Contact Info) Description 04/10/2009 Orders Only [facility] [address] [place] [phone] Drew Goff MD [address] [place] [address] Social History Tobacco Use Types Packs/Day Years [...] n file documented as of this encounter Progress Notes * Drew Goff - 04/11/2009 5:19 PM ESTQuick Note: Sugar and chol elevated. Diet. Lipid, glucose in 6 months. * Leidy Monteiro - 04/11/2009 7:59 AM ESTQuick Note: NEW RESULT CXR documented in this encounter Plan of Treatment Not on file documented as of this encounter Procedures * Due to [facility] law, this organization might not be sharing negative HIV tests. Procedure Name Priority Date/Time Associated Diagnosis Comments XRAY CHEST 2 VIEWS PA & LAT Routine 04/10/2009 10:27 AM EST BASIC METABOLIC PANEL W/GLOMERULAR FILTRATION RATE (EGFR) Routine 04/10/2009 Screening, hypertension LIPID PANEL + CARDIAC RISK WITH REFLEX TO LDL DIRECT Routine 04/10/2009 Screening for hyperlipidemia CBC 5 PART DIFF Routine 04/10/2009 Screening for deficiency anemia ALANINE AMINOTRANSFERASE (ALT), SERUM Routine 04/10/2009 Screening, hypertension TSH, THYROTROPIN Routine 04/10/2009 Screening, thyroid disorder URINALYSIS, COMPLETE (DIP & MICRO) Routine 04/10/2009 Screening for hyperlipidemia documented in this encounter Results * Due to [place] [email or web address] law, this organization might not be sharing negative HIV tests. * XRAY CHEST 2 VIEWS PA & LAT (04/10/2009 10:27 AM EST) Pathologist [facility] RADIOLOGY REPORT Procedure: Standard chest PA and lateral imaging . Number of films: 2. Comparison: None . History: HX Asthma Findings: The heart size is not significantly enlarged. Mediastinum demonstrates no significant widening . The lung smith are clear of consolidation, effusions or suspicious nodules. The visualized upper abdomen is unremarkable. Impression: No acute findings of the chest Anatomical Region Laterality Modality Other 04/10/2009 10:2 7 AM EST Narrative 04/10/2009 5:57 PM EST Reason for Study/History: ASTHMA TEST(S) PROCESSED BY [facility] AT [facility] Drew Xie MD GENERAL IMAGING- OTHER Final Result * (ABNORMAL) URINALYSIS, COMPLETE (DIP & MICRO) (04/10/2009) Pathologist [facility] COLOR (URINE) YELLOW YELLOW [facility] APPEARANCE (URINE) CLEAR CLEAR [facility] SPECIFIC GRAVITY 1.023 1.001 - 1.035 [facility] PH (URINE) 6.5 5.0 - 8.0 [facility] PROTEIN (URINE) NEG NEG [facility] GLUCOSE (URINE) NEG NEG [facility] Ketones (Urine) NEG NEG [facility] BILIRUBIN (URINE) NEG NEG [facility] BLOOD (URINE) 1+(A) NEG [facility] WBC (URINE) NEG NEG [facility] NITRITE (URINE) NEG NEG [facility] WBC (URINE) 0-5 0-4/HPF [facility] RBC (Urine Sed) 0 0-3/HPF [facility] EPITHELIAL CELLS.SQUAMOUS (URINE SED) 6-10(A) 0-5/HPF [facility] EPITHELIAL CELLS.TRANSITI ONAL (URINE SED) 0 0-5/HPF [facility] EPITHELIAL CELLS.RENAL (URINE SED) 0 0-3/HPF [facility] BACTERIA (URINE) MODERATE(A ) NONE SEEN [facility] 04/10/2009 04/10/2009 5:1 1 PM EST Drew Xie MD LAB SAME DAY RESULT Final Re sult Performing Organization Address [facility] Co de Phone Number [facility] [address] [place] [address] * TSH (THYROTROPIN) (04/10/2009) Pathologist [facility] TSH, THYROTROPIN 1.66 0.40 - 4.50 UIU/ML [facility] 04/10/2009 04/10/2009 5:1 1 PM EST Drew Xie MD LABORATORY Final Result Performing Organization Address [facility]/ZIP Co de Phone Number [facility] [address] [place] [address] * CBC 5 PART DIFF (04/10/2009) Pathologist [facility] WHITE BLOOD COUNT 4.8 3.8 - 10.8 THOUS/UL [facility] RBC 4.18 3.80 - 5.10 MIL/UL [facility] Hemoglobin 13.0 11.7 - 15.5 G/DL [facility] HCT (HEMATOCRIT) 38.1 35.0 - 45.0 % [facility] MCV 91.2 80.0 - 100.0 FL [facility] MCH 31.1 27.0 - 33.0 PG [facility] MCHC 34.2 32.0 - 36.0 G/DL [facility] BAND % 0 0 - 5 % [facility] NEUTROPHIL % 50 48 - 75 % [facility] LYMPHOCYTE % 39 17 - 40 % [facility] MONOCYTE % 8 0 - 14 % [facility] EOSINOPHIL % 2 0 - 5 % [facility] BASOPHIL % 1 0 - 3 % [facility] ATYPICAL LYMPHOCYTE % 0 0 - 5 % [facility] PLATELETS 269 140 - 400 THOUS/UL [facility] BANDS # 0 0 - 750 CELLS/MCL [facility] NEUTROPHILS # 2400 1500 - 7800 CELLS/MCL [facility] LYMPHOCYTES # 1872 850 - 3900 CELLS/MCL [facility] MONOCYTES # 384 200 - 950 CELLS/MCL [facility] EOSINOPHILS # 96 15 - 550 CELLS/MCL [facility] BASOPHILS # 48 0 - 200 CELLS/MCL [facility] ATYPICAL LYMPHOCYTES # 0 0 - 200 CELLS/MCL [facility] RDW 12.8 11.0 - 15.0 % [facility] MPV 8.5 7.5 - 11.5 FL [facility] 04/10/2009 04/10/2009 5:1 1 PM EST us Drew Xie MD LAB SAME DAY RESULT Final Re sult Performing Organization Address City/State/[facility] Co de Phone Number [facility] [address] [place] [address] * (ABNORMAL) BASIC METABOLIC PANEL W/GLOMERULAR FILTRATION RATE (EGFR) (04/10/2009) CALCIUM 9.7 8.6 - 10.2 MG/DL [facility] BUN 15 7 - 25 MG/DL [facility] CREATININE 0.68 0.59 - 1.07 MG/DL [facility] Glucose 102(H) 65 - 99 MG/DL [facility] SODIUM 141 135 - 146 MMOL/L [facility] POTASSIUM 4.3 3.5 - 5.3 MMOL/L [facility] CHLORIDE 105 98 - 110 MMOL/L [facility] CARBON DIOXIDE 22 21 - 33 MMOL/L [facility] GFR > 60 60 AND ABOVE [facility] Comment:UNITS: ML/MIN/1.73 S Q METERS EGFR > 60 60 AND ABOVE [facility] Comment:UNITS: ML/MIN/1.73 S Q METERS 04/10/2009 04/10/2009 5:1 1 PM EST Narrative [facility] - 04/11/2009 2:47 AM EST Please note that this estimated GFR does not include an adjustment for the patient's height or weight, and can therefore, be viewed as reliable only for patients with heights between 60 and 72 . More precise quantification using a 24-hour urine sample or height-based algorithm is recommended for patients outside of this range of height and for those individuals with more precise needs for GFR calculation. us Drew Xie MD LABORATORY Final Result Performing Organization Address [facility] de Phone Number [facility] [address] [place] [address] * (ABNORMAL) LIPID PANEL + CARDIAC RISK WITH REFLEX TO LDL DIRECT (04/10/2009) CHOLESTEROL, TOTAL 210(H) 125 - 200 MG/DL [facility] TRIGLYCERIDES 91 30 - 149 MG/DL [facility] HDL-CHOLESTEROL 44 40 - 77 MG/DL [facility] LDL-CHOLESTEROL 148(H) 62 - 130 MG/DL [facility] Comment: RISK CATEGORY: LDL-CHOLESTEROL GOAL CHD AND CHD RISK EQUIVALENTS: <100 MULTIPLE (2+) FACTORS: <130 ZERO TO ONE RISK FACTOR: <160 CHD RELATIVE RISK RATIO (TOTAL/HDL) 4.77 0.0 - 5.0 [facility] Comment:(1.2 X AVERAGE) 04/10/2009 04/10/2009 5:1 1 PM EST us Drew Xie MD LABORATORY Final Result Performing Organization Address [facility] de Phone Number [facility] [address] [place] [address] * ALANINE AMINOTRANSFERASE (ALT), SERUM (04/10/2009) ALT (SGPT) 19 6 - 40 U/L [facility] 04/10/2009 04/10/2009 5:1 1 PM EST Result Gonzales Xie MD LAB SAME DAY RESULT Final Re sult Performing Organization Address [facility] Co de Phone Number [facility] [address] [place] [address] documented in this encounter Visit Diagnoses Diagnosis Screening, hypertension Screening for hypertension Screening for hyperlipidemia Screening for lipoid disorders Screening for deficiency anemia Screening for other and unspecified deficiency anemia Screening, thyroid disorder Screening for thyroid disorder documented in this encounter Care Teams Director Payment Relationship Specialty Start Date End Date Drew Goff MD [address] [place] [address] PCP - General 06/26/05 02/14/11 Terrence Ontiveros MD [address] [address] PCP - General Internal Medicine 02/15/11 documented as of this encounter
--- OUTSIDE RECORDS SUMMARY | 2025-03-05 10:04 | XMS_ITS | Encounter Summary ---
Author Organization [facility] Address [address] [place] [address] Care Team Providers Care Customer Care Consultant Name Role Phone Drew Goff MD Primary Care Provider Terrence Ontiveros MD Primary Care Provider [phone] Encounter Details Date Type Department Care Team (Late st Contact Info) Description 01/03/2007 Orders Only [facility] [address] [place] [phone] Drew Goff MD [address] [place] [address] Social History Tobacco Use Types Packs/Day Years [...] encounter Progress Notes * Drew Goff - 01/05/2007 12:23 PM EDTQuick Note: Left knee is normal and the R showed post surgical changes and some DJD.Send letter. documented in this encounter Plan of Treatment Not on file documented as of this encounter Procedures * Due to [place] state law, this organization might not be sharing negative HIV tests. Procedure Name Priority Date/Time Associated Diagnosis Comments XRAY KNEE AP LAT & OBLQ MIN 3 VW - LEFT Routine 01/03/2007 11:06 AM EDT Pain in Joint, Lower Leg BASIC METABOLIC PANEL Routine 01/03/2007 KNEE JOINT PAIN ABNORMAL AMY TITER ANTI DNA (DOUBLE STRANDED) Routine 01/03/2007 KNEE JOINT PAIN ABNORMAL AMY TITER AMY (IFA) W/ REFLEX TO TITER Routine 01/03/2007 ABNORMAL AMY TITER documented in this encounter Results * Due to [place] state law, this organization might not be sharing negative HIV tests. * XRAY KNEE AP LAT & OBLQ MIN 3 VW - LEFT (01/03/2007 11:06 AM EDT) RADIOLOGY REPORT Left knee: 3 views. Normal. AP image includes the right knee which demonstrates surgical screws distal femur and proximal tibia consistent with prior anterior cruciate ligament repair. Additionally, there are degenerative changes right knee including narrowing of the medial joint space and mild spurring in the medial and lateral joint compartments. [facility] (CLIA# [id number]) Anatomical Region Laterality Modality Other 01/03/2007 11:0 6 AM EDT Narrative 01/05/2007 11:15 AM EDT Reason for Study/History: LT KNEE PAIN X 6 MOS TEST(S) PROCESSED BY [facility] AT [facility] Drew Xie MD GENERAL IMAGING- OTHER Final Result * AMY (IFA) W/ REFLEX TO TITER (01/03/2007) ANTI-NUCLEAR AB NEGATIVE NEGATIVE [facility] (CLIA# [id number]) AMY TITER < 1:40 <1:40 [facility] (CLIA# [id number]) 01/03/2007 01/03/2007 3:4 5 PM EDT us Drew Xie MD LABORATORY Final Result [facility] (CLIA# [id number]) [address] [place] [address] * ANTI DNA (DOUBLE STRANDED) (01/03/2007) [facility] DNA DOUBLE STRAND AB < 30 < 30 UNITS [facility] (CLIA# [id number]) 01/03/2007 01/03/2007 3:4 5 PM EDT us Drew Xie MD LABORATORY Final Result Performing Organization Address [facility] de Phone Number [facility]# [id number]) [address] [place] [address] * BASIC METABOLIC PANEL (01/03/2007) [facility] CALCIUM 9.6 8.6 - 10.2 MG/DL [facility] (CLIA# [id number]) BUN 10 7 - 25 MG/DL [facility] (CLIA# [id number]) CREATININE 0.7 0.5 - 1.2 MG/DL [facility] (CLIA# [id number]) BUN/Creatinine Ratio 14 6 - 25 [facility] (CLIA# [id number]) Glucose 84 65 - 99 MG/DL [facility] (CLIA# [id number]) SODIUM 139 135 - 146 MMOL/L [facility] (CLIA# [id number]) POTASSIUM 4.5 3.5 - 5.3 MMOL/L [facility] (CLIA# [id number]) CHLORIDE 102 98 - 110 MMOL/L [facility] (CLIA# [id number]) CARBON DIOXIDE 26 21 - 33 MMOL/L [facility] (CLIA# [id number]) 01/03/2007 01/03/2007 3:4 5 PM EDT Drew Xie MD LAB SAME DAY RESULT Final Re sult Performing Organization Address [facility]/ZIP Co de Phone Number [facility] (CLIA# [id number]) [address] [place] [address] documented in this encounter Visit Diagnoses Diagnosis KNEE JOINT PAIN Pain in joint, lower leg ABNORMAL AMY TITER Other and unspecified nonspecific immunological findings documented in this encounter Care Teams Customer Care Consultant Relationship Specialty Start Date End Date Drew Goff MD [address] [place] [address] PCP - General 06/26/05 02/14/11 Terrence Ontiveros MD [address] [address] PCP - General Internal Medicine 02/15/11 documented as of this encounter
--- OUTSIDE RECORDS SUMMARY | 2025-03-05 10:04 | XMS_ITS | Encounter Summary ---
Author Organization [facility] Address [address] [place] [address] Care Team Providers Care Storage Management Architect Name Role Phone Drew Goff MD Primary Care Provider Terrence Ontiveros MD Primary Care Provider [phone] Encounter Details Date Type Department Care Team (Late st Contact Info) Description 07/01/2010 Orders Only [facility] [address] [place] [phone] Drew Goff MD [address] [place] [address] Social History Tobacco Use Types Packs/Day Years Used Date Smoking Tobacco: Never Smokeless Tobacco: Never Alcohol Use Standard Drinks/Week Comments Yes 0 (1 standard drink = 0.6 oz pur e alcohol) rarely Comments No Sex and Gender Information Value Date Recorded Sex Assigned at Not on file Legal Sex Female 9:39 PM EDT Gender Identity Not on file Sexual Orientation Not on file 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 * Drew Goff - 07/04/2010 8:48 AM EDTQuick Note: Stable. Send a letter. * Loli Ramon - 07/03/2010 8:17 AM EDTQuick Note: New lab result Post ov * Loli Ramon - 07/02/2010 7:41 AM EDTQuick Note: New lab result A1C pending Post ov documented in this encounter Plan of Treatment Not on file documented as of this encounter Procedures * Due to [place] state law, this organization might not be sharing negative HIV tests. Procedure Name Priority Date/Time Associated Diagnosis Comments BASIC METABOLIC PANEL W/GLOMERULAR FILTRATION RATE (EGFR) Routine 07/01/2010 Obesity Dyslipidemia Anxiety Hyperglycemia HEMOGLOBIN A1C Routine 07/01/2010 Obesity Dyslipidemia Anxiety Hyperglycemia LIPID PANEL + CARDIAC RISK WITH REFLEX TO LDL DIRECT Routine 07/01/2010 Obesity Dyslipidemia Anxiety Hyperglycemia THYROID STIMULATING HORMONE (TSH) WITH FREE T4 REFLEX, SERUM Routine 07/01/2010 Obesity Dyslipidemia Anxiety Hyperglycemia documented in this encounter Results * Due to [place] state law, this organization might not be sharing negative HIV tests. * THYROID STIMULATING HORMONE (TSH) WITH FREE T4 REFLEX, SERUM (07/01/2010) TSH, THYROTROPIN 1.592 0.40 - 4.50 UIU/ML [facility] 07/01/2010 07/01/2010 5:3 9 PM EDT Drew Xie MD LABORATORY Final Result [facility] [address] [place] [address] * (ABNORMAL) LIPID PANEL + CARDIAC RISK WITH REFLEX TO LDL DIRECT (07/01/2010) CHOLESTEROL, TOTAL 201(H) 125 - 200 MG/DL [facility] TRIGLYCERIDES 135 30 - 149 MG/DL [facility] HDL-CHOLESTEROL 42 40 - 77 MG/DL [facility] LDL-CHOLESTEROL 132(H) 62 - 130 MG/DL [facility] Comment: RISK CATEGORY: LDL-CHOLESTEROL GOAL CHD AND CHD RISK EQUIVALENTS: <100 MULTIPLE (2+) FACTORS: <130 ZERO TO ONE RISK FACTOR: <160 CHD RELATIVE RISK RATIO (TOTAL/HDL) 4.79 0.0 - 5.0 [facility] Comment:(1.2 X AVERAGE) 07/01/2010 07/01/2010 5:3 9 PM EDT us Drew Xie MD LABORATORY Final Result Performing Organization Address [facility] Co de Phone Number [facility] [address] [place] [address] * BASIC METABOLIC PANEL W/GLOMERULAR FILTRATION RATE (EGFR) (07/01/2010) Pathologist [facility] CALCIUM 9.4 8.6 - 10.2 MG/DL [facility] BUN 10 7 - 25 MG/DL [facility] CREATININE 0.65 0.59 - 1.07 MG/DL [facility] Glucose 87 65 - 99 MG/DL [facility] SODIUM 139 135 - 146 MMOL/L [facility] POTASSIUM 4.0 3.5 - 5.3 MMOL/L [facility] CHLORIDE 103 98 - 110 MMOL/L [facility] CARBON DIOXIDE 25 21 - 33 MMOL/L [facility] GFR > 60 60 AND ABOVE [facility] Comment:UNITS: ML/MIN/1.73 S Q METERS EGFR > 60 60 AND ABOVE [facility] Comment:UNITS: ML/MIN/1.73 S Q METERS 07/01/2010 07/01/2010 5:3 9 PM EDT Narrative [facility] - 07/02/2010 4:29 AM EDT Please note that this estimated GFR does [...] MD LABORATORY Final Result Performing Organization Address [facility] Co de Phone Number [facility] [address] [place] [address] * HEMOGLOBIN A1C (07/01/2010) Hemoglobin A1C 5.7 0.0 - 5.7 % [facility] GLUCOSE MEAN VALUE 126 MG/DL [facility] 07/01/2010 07/01/2010 5:3 9 PM EDT Drew Xie MD LABORATORY Final Result [facility] [address] [place] [address] documented in this encounter Visit Diagnoses Diagnosis Obesity Obesity, unspecified Dyslipidemia Other and unspecified hyperlipidemia Anxiety Anxiety state, unspecified Hyperglycemia Other abnormal glucose documented in this encounter Care Teams Storage Management Architect Relationship Specialty Start Date End Date Drew Goff MD [address] [place] [id number] PCP - General 06/26/05 02/14/11 Terrence Ontiveros MD [address] [address] PCP - General Internal Medicine 02/15/11 documented as of this encounter
--- OUTSIDE RECORDS SUMMARY | 2025-03-05 10:04 | XMS_ITS | Clinical Summary ---
Author Organization [facility] Address [address] [place] [address] Care Team Providers Care Biochemist Name Role Phone Terrence Ontiveros MD Primary Care Provider [phone] Allergies Active Allergy Reactions Criticality Noted Date Comments Aspirin 06/01/2006 Questionable allergy - no reaction noted per pt. Sulfa Antibiotics 06/01/2006 Questionable allergy - no reaction noted per pt. Medications Multi-Vitamin OR TABS 1 TABLET DAILY Activ e CALCIUM CARBONATE-VITAM IN D (CALCIUM 600/VITAMIN D) 600-400 MG-UNIT OR TABS daily Active MISC. DEVICES XX MISC Physical therapy eval and treat:neck,haroon k and bilateral knee pain. 0 0 0 Active Active Problems Problem Noted Date Diagnosed Date Anxiety 04/10/2009 Overview (11/11/2010): Anxiety and depression. Started paxil in January 2009. Feeling better. Not short temper anymore and not depressed and feels calmer and less stressed out. Risk of paxil explained. She does not feel she can stop the medication. Goes once a month with her daughter a counselor. Whenever she stops the Paxil depression and temper/anxiety gets worse. Nevus 04/11/2008 Overview (04/11/2008): Risk of sun exposure explained. Went over ABCD changes of melanoma and skin inspecion. Obesity 04/11/2008 Overview (04/12/2009): Wt reduction she did well. Importance of not gaining it back explained Hyperglycemia 04/11/2008 Overview (04/11/2008): Risk of prediabetes explained. DIET excersise and WT reduction. Dyslipidemia 04/11/2008 Overview (11/11/2010): Low HDL, last one was normal, LDL a little high. Risk of WI,CVA explained. Reinforced importance of the diet and exercise and regular follow up. Hold on recheck for now due to copays. Asthma 06/24/2005 Overview (03/21/2016): Stable. Didn't use an inhaler for 1 year. Advised to get the flu vaccine. No PFTss due to copay. , Resolved Problems Problem Noted Date Diagnosed Date Resolved Date Elevated BP 04/11/2008 04/10/2009 Overview (03/29/2017): She will follow. Check BP at home. Knee joint pain 12/14/2006 04/12/2009 Overview (04/11/2008): Xr ortho referral. Chronic low back pain 12/14/20062009 Overview (04/11/2008): Better with streches. Motrin sometimes. Sciatica 12/14/2006 04/12/2009 Immunizations Immunization Administration Dates Next Due Influenza,seasonal,trivalent,preservative (FLUZO NE MDV) 04/11/2008 State H1N1 Vaccine,injection 03/05/2009 Td (adult), adsorbed 02/02/1999 Tdap(Boostrix) 01/03/2007 Family History Medical History Relation Name Comments Heart Disorder Father mi age 58 Psych/Mental Health Maternal aunt depress ion Psych/Mental Health Maternal grandmother depression Cancer (?Type) Mother uterine age 5 7 Diabetes Mother Psych/Mental Health Mother depressi on and anxiety Cancer (?Type) Neg Hx no colon ca n o colon polyps no ovarian ca Cancer - Breast Neg Hx Relation Name Status Comments Father Maternal aunt Maternal grandmother Mother Social History Tobacco Use Types Packs/Day Years [...] 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 Height 165.1 cm (5' 5 ) 11/11/2010 10:25 AM EDT Body Mass Index 34.61 11/11/2010 10:25 AM EDT Plan of Treatment Health Maintenance Due Date Last Done Comments Hepatitis C Screening 1966 Hep B (1 of 3 - 19+ 3-dose series) 1985 Pap Smear 01/24/2011 01/25/2008, 09/19/2006 Mammogram/Breast Imaging 08/11/2011 011, 08/07/2009, 04/18/2008, Additional history exists Pneumococcal 50+ years (1 of 1 - PCV) 2016 Zoster (Shingrix) (1 of 2) 2016 DTaP/Tdap/Td (2 - Td or Tdap) 01/03/2017 01/03/2007, 02/02/1999 COVID-19 Vaccine ( - 2024- season) 2024 Influenza (#1) 2024 04/11/2008 RSV (1 - 1-dose 75+ series) 2041 HPV Vaccine (No Doses Required) Completed Hep A Aged Out No longer eligi ble based on patient's age to complete this topic Hib Aged Out No longer eligi ble based on patient's age to complete this topic Meningococcal ACWY Aged Out No longer eligible based on patient's age to complete this topic Procedures * Due to [place] state law, this organization might not be sharing negative HIV tests. Procedure Name Priority Date/Time Associated Diagnosis Comments MAMMOGRAM SCREENING , BILATERAL FC Routine 08/10/2010 9:44 AM EDT Screening mammogram THIN PREP PAP TEST WITH HUMAN PAPILLOMAVIRUS (HPV) DNA, HIGH Routine 01/25/2008 11:30 AM EDT from Last 3 Months or Most Recently Relevant to Health Maintenance Results * Due to [place] state law, this organization might not be sharing negative HIV tests. * MAMMOGRAM SCREENING , BILATERAL FC (08/10/2010 9:44 AM EDT) LETTER SENT A mammogram letter type ANB was mailed to patient [facility] (IA# [id number]) Anatomical Region Laterality Modality BREAST Bilateral Mammography 08/12/2010 4:45 PM EDT Narrative 08/12/2010 4:45 PM EDT Digital Bilateral Screening Mammograms, '99 11: This mammogram was interpreted with the assistance of a computer aided detection (CAD) system. Family History: Negative Residual fibroglandular tissue present bilaterally. No dominant mass lesion or suspicious calcification. Compared to 2006 2008 2009 mammograms. Impression: No radiographic evidence to suggest malignancy. A letter (A) in lay language describing the results will follow this report. The FDA, in accordance with the mammography Standards Act, requires that this letter be sent to the patient by the interpreting radiologist.. BI-RADS Category 1: Negative. *#ANB#* Procedure Note Odette Wolf MD - 08/12/2010 Digital Bilateral Screening Mammograms, '99 11: This mammogram was interpreted with the assistance of a computer aided detection (CAD) system. Family History: Negative Residual fibroglandular tissue present bilaterally. No dominant mass lesion or suspicious calcification. Compared to 2006 2008 2009 mammograms. Impression: No radiographic evidence to suggest malignancy. A letter (A) in lay language describing the results will follow this report. The FDA, in accordance with the mammography Standards Act, requires that this letter be sent to the patient by the interpreting radiologist.. BI-RADS Category 1: Negative. *#ANB#* Drew Xie MD IMG MAMMO ORDERABLES Final R esult * THIN PREP PAP TEST WITH HUMAN PAPILLOMAVIRUS (HPV) DNA, HIGH (01/25/2008 11:30 AM EDT) THINPREP PAP TEST WITH HPV SEE TEXT Comment: THINPREP PAP TEST WITH HPV SOURCES: CERVIX, ENDOCERVIX CLINICAL HISTORY: LMP: 01/18/2008 NORMAL EXAM ADDITIONAL INFORMATION IUD LPS 09/19/2006 NEG STATEMENT OF ADEQUACY: SATISFACTORY, ENDOCERVICAL/TRANSFORMATION ZONE COMPONENT IS PRESENT RESULT: NEGATIVE FOR INTRAEPITHELIAL LESION OR MALIGNANCY HPV DNA TEST: NOT DETECTED HIGH/INTERMEDIATE RISK HPV DNA SUBTYPES (16,18,31,33,35,39,45, 51,52,56,58,59,68) ARE NOT DETECTED. COMMENTS: HPV PERFORMED AT [facility], [address] [place] [address], OWEN WINSLOW M.D., DIRECTOR RESULT DATE: 01/30/2008 TECHNOLOGIST: [facility] GYNECOLOGICAL CYTOLOGY IS A SCREENING PROCEDURE SUBJECT TO BOTH FALSE NEGATIVE AND FALSE POSITIVE RESULTS. IT IS MOST RELIABLE WHEN A SATISFACTORY SAMPLE IS OBTAINED ON A REGULAR REPETITIVE BASIS. RESULTS MUST BE INTERPRETED IN THE CONTEXT OF HISTORIC AND CURRENT CLINICAL INFORMATION. 01/25/2008 11:3 0 AM EDT 01/25/2008 11:30 PM EDT Narrative 01/31/2008 1:38 PM EDT Report Comments: HPV PERFORMED AT [facility], [address] [place] [address], OWEN WINSLOW M.D., DIRECTOR Jesús Thao MD PATHOLOGY-INTERFACED Final Resul t from Last 3 Months or Most Recently Relevant to Health Maintenance Care Teams Biochemist Relationship Specialty Start Date End Date Terrence Ontiveros MD [address] [id number] PCP - General Internal Medicine 02/15/11
--- OUTSIDE RECORDS SUMMARY | 2025-03-05 10:04 | XMS_ITS | Encounter Summary ---
Author Organization [facility] Address [address] [place] [address] Care Team Providers Care Tripe Scraper Name Role Phone Drew Goff MD Primary Care Provider Terrence Ontiveros MD Primary Care Provider [phone] Encounter Details Date Type Department Care Team (Late st Contact Info) Description 02/11/2011 Orders Only [facility] [address] [place] [phone] Drew Goff MD [address] [place] [phone] Social History Tobacco Use Types Packs/Day Years [...] on file documented as of this encounter Visit Diagnoses Not on filedocumented in this encounter Care Teams Tripe Scraper Relationship Specialty Start Date End Date Drew Goff MD [address] [place] [id number] PCP - General 06/26/05 02/14/11 Terrence Ontiveros MD [address] [address] PCP - General Internal Medicine 02/15/11 documented as of this encounter
--- OUTSIDE RECORDS SUMMARY | 2025-03-05 10:04 | XMS_ITS | Encounter Summary ---
Author Organization [facility] Address [address] [place] [address] Care Team Providers Care Senior Structural Engineer Name Role Phone Drew Goff MD Primary Care Provider Terrence Ontiveros MD Primary Care Provider [phone] Encounter Details Date Type Department Care Team (Late st Contact Info) Description 10/17/2008 Orders Only [facility] [address] [place] [phone] Drew Goff MD [address] [place] [address] Social History Tobacco Use Types Packs/Day Years [...] of this encounter Procedures * Due to [place] state law, this organization might not be sharing negative HIV tests. Procedure Name Priority Date/Time Associated Diagnosis Comments BASIC METABOLIC PANEL W/GLOMERULAR FILTRATION RATE (EGFR) Routine 10/17/2008 Elevated BP HEMOGLOBIN A1C Routine 10/17/2008 Elevated BP MICROALBUMIN (RANDOM URINE) Routine 10/17/2008 Elevated BP LIPID PROFILE + FASTING GLUCOSE Routine 10/17/2008 Elevated BP ALANINE AMINOTRANSFERASE (ALT), SERUM Routine 10/17/2008 Elevated BP documented in this encounter Results * Due to [place] state law, this organization might not be sharing negative HIV tests. * ALANINE AMINOTRANSFERASE (ALT), SERUM (10/17/2008) ALT (SGPT) 14 6 - 40 U/L [facility] 10/17/2008 10/17/2008 6:3 2 PM EDT Drew Xie MD LAB SAME DAY RESULT Final Re sult Performing Organization Address [facility] Co de Phone Number [facility] [address] [place] [address] * LIPID PROFILE + FASTING GLUCOSE (10/17/2008) CHOLESTEROL, TOTAL 188 125 - 200 MG/DL [facility] TRIGLYCERIDES 94 30 - 149 MG/DL [facility] HDL-CHOLESTEROL 42 40 - 77 MG/DL [facility] LDL-CHOLESTEROL 127 62 - 130 MG/DL [facility] Comment: RISK CATEGORY: LDL-CHOLESTEROL GOAL CHD AND CHD RISK EQUIVALENTS: <100 MULTIPLE (2+) FACTORS: <130 ZERO TO ONE RISK FACTOR: <160 CHD RELATIVE RISK RATIO (TOTAL/HDL) 4.48 0.0 - 5.0 [facility] Comment:(1.1 X AVERAGE) 10/17/2008 10/17/2008 6:3 2 PM EDT us Drew Xie MD LABORATORY Final Result Performing Organization Address [facility] Co de Phone Number [facility] [address] [place] [address] * MICROALBUMIN (RANDOM URINE) (10/17/2008) CREATININE (URINE) 36 20 - 320 MG/DL [facility] Microalbumin (Urine) < 5 NOT ESTABLISHED [facility] MICROALBUMIN/CR EAT RATIO (URINE) SEE TEXT 0 - 29 [facility] Comment: UNITS: MCG/MG CREATININE MICROALBUMIN <5, CANNOT CALCULATE RATIO 10/17/2008 10/17/2008 6:3 2 PM EDT us Drew Xie MD LABORATORY Final Result Performing Organization Address [facility] Co de Phone Number [facility] [address] [place] [address] * HEMOGLOBIN A1C (10/17/2008) Hemoglobin A1C 5.5 0.0 - 5.9 % [facility] GLUCOSE MEAN VALUE 119 MG/DL [facility] 10/17/2008 10/17/2008 6:3 2 PM EDT us Drew Xie MD LABORATORY Final Result Performing Organization Address [facility] de Phone Number [facility] [address] [place] [address] * BASIC METABOLIC PANEL W/GLOMERULAR FILTRATION RATE (EGFR) (10/17/2008) CALCIUM 9.6 8.6 - 10.2 MG/DL [facility] BUN 11 7 - 25 MG/DL [facility] CREATININE 0.70 0.59 - 1.07 MG/DL [facility] Glucose 88 65 - 99 MG/DL [facility] SODIUM 139 135 - 146 MMOL/L [facility] POTASSIUM 4.0 3.5 - 5.3 MMOL/L [facility] CHLORIDE 103 98 - 110 MMOL/L [facility] CARBON DIOXIDE 26 21 - 33 MMOL/L [facility] GFR > 60 60 AND ABOVE [facility] Comment:UNITS: ML/MIN/1.73 S Q METERS EGFR > 60 60 AND ABOVE [facility] Comment:UNITS: ML/MIN/1.73 S Q METERS 10/17/2008 10/17/2008 6:3 2 PM EDT Narrative [facility] - 10/17/2008 8:37 PM EDT Please note that this estimated GFR [...] us Drew Xie MD LABORATORY Final Result [facility] [address] [place] [address] documented in this encounter Visit Diagnoses Diagnosis Hyperglycemia Other abnormal glucose Elevated BP Elevated blood pressure reading without diagnosis of hypertension documented in this encounter Care Teams Senior Structural Engineer Relationship Specialty Start Date End Date Drew Goff MD [address] [place] [id number] PCP - General 06/26/05 02/14/11 Terrence Ontiveros MD [address] [address] PCP - General Internal Medicine 02/15/11 documented as of this encounter
== END 2025-03-05 10:38 | disposition home or self-care (01) ==
LOC: HO.HOS 09:22
PROVIDERS: PCP Internal Medicine; Visit Provider Orthopaedic Surgery
DX: G56.22 Lesion of ulnar nerve, left upper limb (principal); Z47.89 Encounter for other orthopedic aftercare; R20.0 Anesthesia of skin; R20.2 Paresthesia of skin
CPT/HCPCS: 99204

== ENCOUNTER → 2025-03-05 09:21 | Outpatient (BNVA) | payer MEDICARE, MEDICAID, SELFPAY | PROVIDERS: PCP Internal Medicine; Visit Provider Orthopaedic Surgery | DX: G56.22 Lesion of ulnar nerve, left upper limb (principal); R20.0 Anesthesia of skin; R20.2 Paresthesia of skin; Z98.890 Other specified postprocedural states | CPT/HCPCS: 99202 ==